=== PATIENT | female | born 1985 | race Two or more races ===

== ENCOUNTER 2024-05-31 09:27 | Emergency (ER) | payer OTHER ==
[~2024-05-31] VITALS: Ht 162.6 cm; Wt 69.6 kg
[2024-05-31 09:33] VITALS: BP 116/73; PULSE 87; RESP 18; TEMP 97.5; O2SAT 100
== END 2024-05-31 11:43 | disposition left against medical advice (07) ==
LOC: ER 09:27
DX: R51.9 Headache, unspecified (principal); Z53.21 Procedure and treatment not carried out due to patient leaving prior to being seen by health care provider
CPT/HCPCS: 96374